=== PATIENT | female | born 1990 | race Hispanic/Latino ===

== ENCOUNTER 2018-11-02 10:32 | Emergency (ER) | payer OTHER ==
[2018-11-02] MEDS ORDERED: ACETAMINOPHEN 325 MG TAB ONE (11:49)
[2018-11-02 12:00] LABS: RAPID GROUP A STREP NEGATIVE (NEGATIVE)
== END 2018-11-02 12:49 | disposition home or self-care (01) ==
LOC: EDH 10:32
DX: B34.9 Viral infection, unspecified (principal); M79.10 Myalgia, unspecified site; H92.09 Otalgia, unspecified ear
CPT/HCPCS: 87804; 87880